=== PATIENT | male | born 1990 | race Caucasian/White ===

== ENCOUNTER 2018-05-18 18:43 | Emergency (ER) | payer OTHER ==
[~2018-05-18] VITALS: Ht 177.8 cm; Wt 97.4 kg
[~2018-05-18 18:43] MED LIST: RALT400T PO; TRVHP PO
[2018-05-18 18:52] VITALS: TEMP 37.1; Ht 177.8 cm; Wt 97.4 kg
[2018-05-18] MEDS ORDERED: PROPARACAINE HCL 0.5% OP SOLN 15 ML BTL OP STA (18:59)
[2018-05-18] MEDS ORDERED: TRVHP PO ×2 (19:15→19:38)
[2018-05-18] MEDS ORDERED: RALT400T PO ×2 (19:15→19:38)
[2018-05-18] MEDS ORDERED: ONDA4TAB10 SL (19:38)
[2018-05-18] MEDS ORDERED: HIV POST EXPOSURE PROPHYLAXIS KIT ONE (19:45)
[2018-05-18 19:56] LABS: BASO % 0.1 %; BASO ABS # 0.01 K/uL (0-0.2); EOS % 1.5 %; EOS ABS # 0.11 K/uL (0-0.5); HEMATOCRIT 44.4 % (42-52); HEMOGLOBIN 16.1 g/dL (14.0-18.0); IG# 0.01 K/uL (0.00-0.02); LYMPH % 27.7 %; LYMPH ABS # 2.05 K/uL (1.2-3.4); MEAN CELL VOLUME 89.2 fL (80-100); MEAN CORPUSCULAR HEMOGLOBIN 32.3 pg (25-34); MEAN CORPUSCULAR HGB CONC 36.3 g/dl (32-36); MEAN PLATELET VOLUME 12.2 fL (7.4-10.4); MONO % 8.8 %; MONO ABS # 0.65 K/uL (0.11-0.59); NEUT % 61.8 %; NEUT ABS # 4.58 K/uL (1.4-6.5); PLATELET COUNT 152 K/uL (130-400); RED CELL DISTRIBUTION WIDTH CV 13.4 % (11.5-14.5); RED CELL DISTRIBUTION WIDTH SD 43.5 fL (36.4-46.3); WHITE BLOOD COUNT 7.41 K/uL (4.8-10.8)
[2018-05-18 20:02] VITALS: BP 133/86; PULSE 93; O2SAT 97
[2018-05-18 20:14] LABS: CALCIUM 9.7 mg/dl (8.5-10.1); CREATININE 1.17 mg/dl (0.60-1.40); POTASSIUM 4.5 mmol/L (3.5-5.1)
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
== END 2018-05-18 20:03 | disposition home or self-care (01) ==
LOC: C.EDB 18:44 → C.EDD 20:03
DX: Z77.21 Contact with and (suspected) exposure to potentially hazardous body fluids (principal); Y99.0 Civilian activity done for income or pay; Z72.0 Tobacco use